=== PATIENT | male | born 1960 | race African-American/Black ===

== ENCOUNTER 2016-11-26 07:55 | Day surgery (SDC) | payer BC ==
[2016-11-25 12:54] VITALS: BMI 35.6
[~2016-11-26 07:55] MED LIST: FLU VACC QS2017-18 36 mo. & older 0.5 ML SYRINGE IM ONE
[2016-11-26 08:20] LABS: Prothrombin Time 13.8 SEC (12.0-14.7)
[2016-11-26 08:21] LABS: PTT 30.6 SEC (22.9-36.1)
[2016-11-26 08:26] LABS: Hematocrit 47.9 % (42.0-52.0); Mean Platelet Volume 7.4 fL (7.4-10.4); Red Blood Cell (RBC) Count 5.35 mill/uL (4.70-6.10); White Blood Cell (WBC) Count 5.1 thou/uL (4.8-10.8)
[2016-11-26] MEDS ORDERED: Sodium Bicarbonate 2.4 MEQ/5 ML ONE (08:57)
[2016-11-26 08:58] LABS: Band 3 % (5-11); Neutrophil 50 % (42-75); Rouleaux Formation SLIGHT = 1-5 cells (100X) (None Seen)
[2016-11-26] MEDS ORDERED: Midazolam HCl 2 mg/2 ml Vial ONE (08:58)
[2016-11-26] MEDS ORDERED: Fentanyl 100 MCG/2 ML VIAL ONE (08:58)
[2016-11-26 09:05] VITALS: BP 120/96; TEMP 97.6
--- NOTE | 2016-11-26 10:50 | ULT ---
SONOGRAPHIC GUIDED HEPATIC BIOPSY: Date: 11/26/16 HISTORY: Lymphoma. Liver infiltration. Abnormal PET scan. CONSCIOUS SEDATION; 1 mg Versed, IV. 50 mcg Fentanyl, IV. TECHNIQUE/FINDINGS: After explaining the procedure and answering all questions, the anterior upper abdomen was prepped a nd draped in the usual sterile fashion. Sterile technique, buffered local anesthesia, conscious jaylene tion, and an anterior approach were used to carefully advance the tip of a 17 gauge trocar needle in to the heterogeneous left liver lobe. Position was confirmed with sonography. A total of four 18 gau ge core biopsy specimens were obtained and submitted to pathology in normal Formalin and in RPMI odalis ution for lymphoma evaluation. Needle was removed. Postprocedure imaging showed no evidence of complication. The patient tolerated the procedure well and was returned to the holding area in good condition for additional evaluation. IMPRESSION: Technically successful sonographic guided liver biopsy. Pathology is pending. POS: ALEXANDRA
== END 2016-11-26 11:35 | disposition home or self-care (01) ==
LOC: ULT 07:55
PROVIDERS: ATTEND Internal Medicine
DX: K75.3 Granulomatous hepatitis, not elsewhere classified (principal); I10 Essential (primary) hypertension; E11.9 Type 2 diabetes mellitus without complications; E78.5 Hyperlipidemia, unspecified; E66.09 Other obesity due to excess calories; Z98.890 Other specified postprocedural states; Z87.891 Personal history of nicotine dependence; Z83.79 Family history of other diseases of the digestive system; Z79.84 Long term (current) use of oral hypoglycemic drugs; Z79.899 Other long term (current) drug therapy; Z68.35 Body mass index [BMI] 35.0-35.9, adult
CPT/HCPCS: 36415; 47000; 76942; 85025; 85610; 85730; 88184; 88307; 88312; 99152; 99153; J2250; J3010

== ENCOUNTER 2022-12-04 07:28 | Outpatient (CLI) | payer BC | END 2022-12-04 07:29 | disposition home or self-care (01) | LOC: SCSMRI 07:28 | PROVIDERS: ATTEND Internal Medicine | DX: K74.60 Unspecified cirrhosis of liver (principal); R94.5 Abnormal results of liver function studies | CPT/HCPCS: 74183; 82565 ==

== ENCOUNTER 2023-08-25 07:21 | Outpatient (CLI) | payer BC | END 2023-08-25 07:22 | disposition home or self-care (01) | LOC: SCSMRI 07:21 | PROVIDERS: ATTEND Physician Assistant Medical | DX: K75.3 Granulomatous hepatitis, not elsewhere classified (principal); K74.60 Unspecified cirrhosis of liver | CPT/HCPCS: 74183; 82565 ==

== ENCOUNTER 2024-03-08 10:28 | Outpatient (CLI) | payer BC | END 2024-03-08 10:29 | disposition home or self-care (01) | LOC: ULT 10:28 | PROVIDERS: ATTEND Physician Assistant Medical | DX: K75.3 Granulomatous hepatitis, not elsewhere classified (principal); K82.8 Other specified diseases of gallbladder | CPT/HCPCS: 76705 ==

== ENCOUNTER 2024-11-16 07:53 | Outpatient (CLI) | payer BC | END 2024-11-16 07:54 | disposition home or self-care (01) | LOC: ULT 07:53 | PROVIDERS: ATTEND Internal Medicine | DX: K75.3 Granulomatous hepatitis, not elsewhere classified (principal) | CPT/HCPCS: 76705 ==